=== PATIENT | male | born 1975 | race Caucasian/White ===

== ENCOUNTER 2018-08-06 19:16 | Emergency (ER) | payer SELFPAY ==
--- NOTE | 2018-08-06 20:05 | ED Physician Documentation ---
History of Present Illness - Stated complaint Stated Complaint: ABD VICKY N - Chief complaint Chief Complaint: Abd Pain - History obtained from History obtained from: Patient - Additonal information Additional information: 42-year-old male presents the emergency department for evaluation of lower abdominal pain over the past several days which has progressively worsened. The patient reports a crampy pain in the lower abdomen. The patient also has sharp upper abdominal pain which is from his hiatal hernia. The patient also reports feeling generally weak and chilled. No fevers, vomiting or diarrhea. No testicular pain. No triggering factors. No relieving factors. Symptoms are described as moderate Review of Systems Constitutional: reports: Chills, Fatigue. denies: Fever Eyes: denies: Discharge Ears: denies: Ear pain Nose: denies: Congestion Throat: denies: Sore throat Cardiac: denies: Chest pain / pressure Respiratory: denies: Dyspnea GI: reports: Abdominal Pain. denies: Vomiting, Diarrhea : denies: Dysuria, Hematuria Musculoskeletal: denies: Neck pain Neurologic: denies: Altered mental status PD PAST MEDICAL HISTORY - Past Medical History Past Medical History: Yes GI: GERD Other Past Medical History: Edema to LE's; Former Meth & Marijuana user; Former ETOH user - Past Surgical History Past Surgical History: No - Present Medications Home Medications: Ambulatory Orders Medication Instructions Recorded Confirmed Acamprosate Calcium 1 tab PO TID 08/06/18 08/06/18 Cyanocobalamin (Vitamin B-12) 1 tab PO DAILY 08/06/18 08/06/18 [Vitamin B-12 (500 mcg sublingual)] Furosemide [Lasix] 1 tab PO DAILY 08/06/18 08/06/18 Iron,Carbonyl [Iron Chews] 65 mg PO DAILY 08/06/18 08/06/18 Multivitamin [Multiple Vitamins] 1 tab PO DAILY 08/06/18 08/06/18 Ranitidine HCl [Acid Paper And Pulp Mill Worker] 1 tab PO BID 08/06/18 08/06/18 - Allergies Allergies/Adverse Reactions: Allergies Allergy/AdvReac Type Severity Reaction Status Date / Time No Known Drug Allergies Allergy Verified 08/06/18 19:40 - Social History Does the pt smoke?: No Smoking Status: Never smoker Does the pt drink ETOH?: No Does the pt have substance abuse?: Yes Substance Use and Type: Marijuana, Meth - Immunizations Immunizations are current?: Yes - POLST Patient has POLST: No PD ED PE NORMAL - General General: Alert and oriented X 3, No acute distress - HEENT HEENT: Atraumatic, PERRL, EOMI - Cardiac Cardiac: RRR, Strong equal pulses - Respiratory Respiratory: No respiratory distress, Clear bilaterally - Abdomen Abdomen: Soft, Non distended. No: Non tender (Tender palpation in the lower abdomen, no rebound or peritoneal signs) - Derm Derm: Normal color - Extremities Extremities: No deformity - Neuro Neuro: Alert and oriented X 3, Normal speech - Psych Psych: Normal mood Results - Vitals Vitals: Vital Signs - 24 hr 08/06/18 08/06/18 19:20 21:09 Temperature 36.9 C Heart Rate 96 78 Respiratory 18 14 Rate Blood Pressure 183/89 H 111/71 O2 Saturation 98 97 Oxygen O2 Source Room air - Labs Labs: Laboratory Tests 08/06/18 08/06/18 08/06/18 19:42 19:45 19:45 WBC 6.1 RBC 5.73 Hgb 13.0 L Hct 42.2 MCV 73.7 L MCH 22.8 L MCHC 30.9 L RDW 23.7 H Plt Count 216 MPV 8.8 Neut # (Auto) 4.4 Lymph # (Auto) 1.1 L [place] # (Auto) 0.5 Eos # (Auto) 0.1 Baso # (Auto) 0.0 Absolute Nucleated RBC 0.00 Nucleated RBC % 0.0 Manual Slide Review Indicated WBC Morphology NORMAL APPEARANCE Platelet Estimate NORMAL (130-450,000) Platelet Morphology NORMAL APPEARANCE RBC Morph Micro Appear 1+ STOMATOCYTES Sodium 138 Potassium 4.4 Chloride 102 Carbon Dioxide 28 Anion Gap 8.0 BUN 14 Creatinine 0.9 Estimated GFR (MDRD) 93 Glucose 100 Calcium 9.3 Total Bilirubin 0.7 AST 25 ALT 33 Alkaline Phosphatase 70 Total Protein 8.1 Albumin 4.5 Globulin 3.6 Albumin/Globulin Ratio 1.3 Lipase 22 Urine Color YELLOW Urine Clarity CLEAR Urine pH 6.5 Ur Specific [place] <=1.005 Urine Protein NEGATIVE Urine Glucose (UA) NEGATIVE Urine Ketones NEGATIVE Urine Occult Blood NEGATIVE Urine Nitrite NEGATIVE Urine Bilirubin NEGATIVE Urine Urobilinogen 0.2 (NORMAL) Ur Leukocyte Esterase NEGATIVE Ur Microscopic Review NOT INDICATED Urine Culture Comments NOT INDICATED - Rads (name of study) CT abd/pelvis Radiology: Final report received (1. No acute solid or hollow viscus organ abnormalities to account for the patient's presentation. No evidence of bowel obstruction or appendicitis 2. There is a moderate sized hiatal hernia.3. There is splenomegaly. ) PD MEDICAL DECISION MAKING - ED course ED course: On reevaluation the patient resting comfortably, the patient's workup does not reveal any significant abnormality that would necessitate admission to the hospital or acute surgical consultation. The patient is aware of the incidental finding seen on CT scan. The patient appears appropriate for discharge and ongoing outpatient management. I discussed warning signs and recommended returning to the emergency department immediately for any worsening or any concerns. - Sepsis Event Vital Signs: Vital Signs - 24 hr 08/06/18 08/06/18 19:20 21:09 Temperature 36.9 C Heart Rate 96 78 Respiratory 18 14 Rate Blood Pressure 183/89 H 111/71 O2 Saturation 98 97 Oxygen O2 Source Room air Departure - Departure Disposition: 01 Home, Self Care Clinical Impression: Hiatal hernia Abdominal pain Qualifiers: Abdominal location: unspecified location Qualified Code(s): R10.9 - Unspecified abdominal pain Anemia Qualifiers: Anemia type: unspecified type Qualified Code(s): D64.9 - Anemia, unspecified Condition: Good Instructions: Abdominal Pain Comments: Please follow-up with primary care for further evaluation of your symptoms. Please return to the emergency department immediately for worsening symptoms or any concerns
[2018-08-06 20:07] LABS: ALBUMIN 4.5 g/dL (3.2-5.5); ALBUMIN/GLOBULIN RATIO 1.3 (1.0-2.2); BILIRUBIN,TOTAL 0.7 mg/dL (0.2-1.0); CALCIUM 9.3 mg/dL (8.5-10.3); CREATININE 0.9 mg/dL (0.6-1.2); TOTAL PROTEIN 8.1 g/dL (6.7-8.2)
[2018-08-06 20:12] LABS: BILIRUBIN,URINE NEGATIVE (NEGATIVE); GLUCOSE, URINE (UA) NEGATIVE (NEGATIVE); KETONES,URINE (UA) NEGATIVE (NEGATIVE); LEUKOCYTE ESTERASE, URINE NEGATIVE (NEGATIVE); NITRITE,URINE NEGATIVE (NEGATIVE); OCCULT BLOOD,URINE NEGATIVE (NEGATIVE); PH,URINE 6.5 PH (5.0-7.5); PROTEIN,URINE NEGATIVE (NEGATIVE); UROBILINOGEN,URINE 0.2 (NORMAL) E.U./dL (NORMAL)
[2018-08-06] MEDS ORDERED: SODIUM CHLORIDE 0.9% 1,000 ML IV ONE (20:14)
[2018-08-06] MEDS ORDERED: ONDANSETRON 4 MG/2 ML VIAL IVP STA (20:14)
[2018-08-06] MEDS ORDERED: KETOROLAC 60 MG/2 ML VIAL IVP STA (20:14)
[2018-08-06 20:18] LABS: CLARITY,URINE CLEAR (CLEAR)
[2018-08-06 20:21] LABS: BASOPHILS % (AUTO) 0.6 %; EOSINOPHILS # (AUTO) 0.1 10^3/uL (0.0-0.7); EOSINOPHILS % (AUTO) 1.3 %; LYMPHOCYTES # (AUTO) 1.1 10^3/uL (1.5-3.5); MEAN CORPUSCULAR HEMOGLOBIN 22.8 pg (27.0-31.0); MEAN CORPUSCULAR HGB CONC 30.9 g/dL (32.0-36.0); MEAN CORPUSCULAR VOLUME 73.7 fL (80.0-94.0); MEAN PLATELET VOLUME 8.8 fL (7.4-11.4); MONOCYTES # (AUTO) 0.5 10^3/uL (0.0-1.0); MONOCYTES % (AUTO) 7.7 %; NEUTROPHILS # (AUTO) 4.4 10^3/uL (1.5-6.6); NEUTROPHILS % (AUTO) 72.4 %; PLT - PLATELET COUNT 216 10^3/uL (130-450); RED BLOOD COUNT 5.73 10^6/uL (4.70-6.10); RED CELL DISTRIBUTION WIDTH 23.7 % (12.0-15.0); WHITE BLOOD COUNT 6.1 x10^3/uL (4.8-10.8)
[2018-08-06] MEDS ORDERED: IOPAMIDOL-300 100 ML VIAL ONE (20:33)
[2018-08-06 20:56] LABS: PLATELET ESTIMATE, MANUAL NORMAL (130-450,000) (NORMAL); PLATELET MORPHOLOGY NORMAL APPEARANCE (NORMAL)
[2018-08-06] MEDS ORDERED: IOPAMIDOL-300 100 ML VIAL IVP ONE (21:15)
--- NOTE | 2018-08-06 21:31 | CT Report ---
Reason: RLQ pain Procedure Date: 08/06/2018 Accession Number: [id number] / [id number] Procedure: CT - Abdomen/Pelvis W/ CPT Code: FULL RESULT: EXAM: CT ABDOMEN AND PELVIS EXAM DATE: 08/06/2018 08:54 PM. CLINICAL HISTORY: RLQ pain. COMPARISONS: None. TECHNIQUE: Routine helical CT imaging was performed through the abdomen and pelvis. IV contrast: 100 ML ISOVUE 300. Enteric contrast: No. Reconstructions: Coronal and sagittal. In accordance with CT protocol optimization, one or more of the following dose reduction techniques were utilized for this exam: automated exposure control, adjustment of mA and/or KV based on patient size, or use of iterative reconstructive technique. FINDINGS: Lung Bases: Unremarkable. Liver: Normal. No masses. Gallbladder/Bile Ducts: Unremarkable. Spleen: There is splenomegaly. Pancreas: Normal. Adrenal Glands: Normal. Kidneys: Normal. No masses or hydronephrosis. Peritoneal Cavity/Bowel: There is a moderate sized hiatal hernia. No dilated or thick-walled bowel is seen. No intraperitoneal free air or free fluid. No enlarged mesenteric or retroperitoneal lymph nodes. The appendix is well visualized and normal. Pelvic Organs: Normal. The bladder and visualized pelvic organs are within normal limits. Vasculature: No aneurysms or other significant abnormality. Bones: No significant abnormality. Other: None. IMPRESSION: 1. No acute solid or hollow viscus organ abnormalities to account for the patient's presentation. No evidence of bowel obstruction or appendicitis. 2. There is a moderate sized hiatal hernia. 3. There is splenomegaly. RADIA
[2018-08-06 21:55] VITALS: BP 137/88
== END 2018-08-06 21:54 | disposition home or self-care (01) ==
LOC: ED 19:16
DX: K44.9 Diaphragmatic hernia without obstruction or gangrene (principal); R10.9 Unspecified abdominal pain; D64.9 Anemia, unspecified
CPT/HCPCS: 36415; 74177; 80053; 81003; 83690; 85025; 96361; 96374; 96375; 99284; Q9967; 81001; 87086

== ENCOUNTER 2020-10-02 20:13 | Emergency (ER) | payer OTHER ==
[2020-10-02 20:23] VITALS: BP 166/72
[2020-10-02] MEDS ORDERED: KETOROLAC 60 MG/2 ML VIAL IM STA (20:35)
--- NOTE | 2020-10-02 20:39 | ED Physician Documentation ---
History of Present Illness - Stated complaint Stated Complaint: RT SHOULDER PX - Chief complaint Chief Complaint: Ext Problem - Additonal information Additional information: 45-year-old male presents to the emergency department for evaluation of acute right shoulder pain. 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 He has had pain since then. He did take an ibuprofen with moderate relief of pain. He is right-handed. No history of previous injury to the shoulder. Review of Systems Constitutional: reports: Reviewed and negative Ears: reports: Reviewed and negative Nose: reports: Reviewed and negative Throat: reports: Reviewed and negative Cardiac: reports: Reviewed and negative Respiratory: reports: Wheezing (hx of asthma) GI: reports: Reviewed and negative Skin: reports: Reviewed and negative Musculoskeletal: reports: Joint pain (right shoulder), Joint swelling Neurologic: reports: Reviewed and negative PD PAST MEDICAL HISTORY - Past Medical History GI: GERD - Past Surgical History Past Surgical History: No General: Hiatal hernia repair - Present Medications Home Medications: Ambulatory Orders Medication Instructions Recorded Confirmed Acamprosate Calcium 1 tab PO TID 08/06/18 08/06/18 Cyanocobalamin (Vitamin B-12) 1 tab PO DAILY 08/06/18 08/06/18 [Vitamin B-12 (500 mcg sublingual)] Furosemide [Lasix] 1 tab PO DAILY 08/06/18 08/06/18 Iron,Carbonyl [Iron Chews] 65 mg PO DAILY 08/06/18 08/06/18 Multivitamin [Multiple Vitamins] 1 tab PO DAILY 08/06/18 08/06/18 raNITIdine HCl [Acid Toxicologist] 1 tab PO BID 08/06/18 08/06/18 Ibuprofen [Motrin] 600 mg PO Q6H PRN #30 tab 10/02/20 - Allergies Allergies/Adverse Reactions: Allergies Allergy/AdvReac Type Severity Reaction Status Date / Time No Known Drug Allergies Allergy Verified 10/02/20 20:23 - Social History Does the pt smoke?: No Smoking Status: Never smoker Does the pt drink ETOH?: No Does the pt have substance abuse?: Yes - Immunizations Immunizations are current?: Yes - POLST Patient has POLST: No PD ED PE EXPANDED - General General: Alert, Other (obese) - Neck Neck: Supple w/out meningeal sx. No: Limited ROM - Extremities Extremities: Right shoulder (No swelling error erythema. Full range of motion in all planes though painful. He has a negative drop arm test. Negative infraspinatus test. Tenderness with palpation over biceps tendon) Results - Vitals Vitals: Vital Signs - 24 hr 10/02/20 20:17 Temperature 36.7 C Heart Rate 96 Respiratory 18 Rate Blood Pressure 166/72 H O2 Saturation 94 Oxygen O2 Source Room air - Rads (name of study) Right shoulder Radiology: Final report received, EMP read indepedently (No acute process) PD MEDICAL DECISION MAKING - ED course Complexity details: reviewed results ED course: 45-year-old male presents to the emergency department with acute right shoulder pain that was sustained while at work when he was lifting a bucket of heavy leaves over his head. [place] a pop in the lateral and anterior shoulder. Reassuringly has nearly full range of motion despite pain. The drop arm and infraspinatus impingement tests were negative. My suspicion for rotator cuff is lower at this time. X-ray does not show any acute fracture or dislocation. I will recommend that this gentleman take ibuprofen with food 3 times a day for the next 4 to 5 days. I also recommend ice to the shoulder. His work restriction will include no lifting pushing or pulling heavier than 2 pounds until cleared by primary care provider or follow-up [facility] provider Departure - Departure Clinical Impression: Sprain of shoulder, right Qualifiers: Encounter type: initial encounter Shoulder sprain type: unspecified sprain Qualified Code(s): S43.401A - Unspecified sprain of right shoulder joint, initial encounter Condition: Stable Record reviewed to determine appropriate education?: Yes Instructions: ED Sprain Shoulder Prescriptions: Ibuprofen [Motrin] 600 mg PO Q6H PRN #30 tab PRN Reason: Pain Comments: Didier the x-ray of your shoulder does not show any broken bones or dislocations. The tests I did on your shoulder today do not look like you have a rotator cuff tear. I suspect however that you do have a sprain of the shoulder. I would like you to avoid lifting pushing or pulling anything greater than 2 pounds for the next week. I would like you to take ibuprofen with food for pain 2-3 times a day and I would also like you to ice the shoulder. It is important that you see your [facility] provider for follow-up within the next week or see a primary care doctor.
--- NOTE | 2020-10-02 21:11 | XRAY Report ---
PROCEDURE: Shoulder 3 View RT INDICATIONS: pain agitated lifting heavy leaves TECHNIQUE: 3 views of the shoulder were acquired. COMPARISON: None. FINDINGS: Bones: No fractures or dislocations. No suspicious bony lesions. Visualized ribs appear intact. Soft tissues: No suspicious soft tissue calcifications. IMPRESSION: No visualized acute fracture or dislocation. However, occult injury cannot be excluded. Recommend short interval imaging follow-up in 7-10 days as clinically indicated for additional evalua tion. Reviewed by: Zakia Vega MD on 10/02/2020 9:10 PM PST Approved by: Zakia Vega MD on 10/02/2020 9:10 PM [facility] Station ID: [id number]
== END 2020-10-02 21:02 | disposition home or self-care (01) ==
LOC: ED 20:13
DX: S43.401A Unspecified sprain of right shoulder joint, initial encounter (principal); X50.0XXA Overexertion from strenuous movement or load, initial encounter; Y93.H9 Activity, other involving exterior property and land maintenance, building and construction; Y99.0 Civilian activity done for income or pay
CPT/HCPCS: 1040M; 73030; 96372; 99283

== ENCOUNTER 2021-02-01 17:29 | Emergency (ER) | payer MEDICAID, OTHER ==
[2021-02-01] MEDS ORDERED: METOPROLOL TARTRATE 50 MG TABLET PO STA (17:42)
[2021-02-01] MEDS ORDERED: NITROGLYCERIN SL 0.4 MG TABLET SL STA (17:42)
[2021-02-01] MEDS ORDERED: ASPIRIN CHEW 81 MG TABLET PO STA (17:42)
[2021-02-01] MEDS ORDERED: METOPROLOL 5 MG/5 ML VIAL IVP STA (17:42)
--- NOTE | 2021-02-01 17:45 | ED Physician Documentation ---
PD HPI CHEST PAIN - Stated complaint Stated Complaint: CHEST PAIN, FACE TINGLING - History obtained from History obtained from: Patient - Additional information Additional information: Started at 4pm, he Developed nonradiating substernal chest pressure with shortness of breath while doing light housework. He feels tingling up the left side of the jaw and face. Dry mouth. He denies sweats or nausea. He has no history of heart problems. No family history of heart problems. He does have a history of anemia. Review of Systems Ten Systems: 10 systems reviewed and negative Constitutional: denies: Fever, Chills Cardiac: reports: Chest pain / pressure. denies: Palpitations Respiratory: reports: Dyspnea. denies: Cough GI: denies: Abdominal Pain, Nausea PD PAST MEDICAL HISTORY - Past Medical History GI: GERD - Past Surgical History Past Surgical History: No General: Hiatal hernia repair - Present Medications Home Medications: Ambulatory Orders Medication Instructions Recorded Confirmed Acamprosate Calcium 1 tab PO TID 08/06/18 08/06/18 Cyanocobalamin (Vitamin B-12) 1 tab PO DAILY 08/06/18 08/06/18 [Vitamin B-12 (500 mcg sublingual)] Furosemide [Lasix] 1 tab PO DAILY 08/06/18 08/06/18 Iron,Carbonyl [Iron Chews] 65 mg PO DAILY 08/06/18 08/06/18 Multivitamin [Multiple Vitamins] 1 tab PO DAILY 08/06/18 08/06/18 raNITIdine HCl [Acid Global Position System Technician] 1 tab PO BID 08/06/18 08/06/18 Ibuprofen [Motrin] 600 mg PO Q6H PRN #30 tab 10/02/20 - Allergies Allergies/Adverse Reactions: Allergies Allergy/AdvReac Type Severity Reaction Status Date / Time No Known Drug Allergies Allergy Verified 02/01/21 17:48 - Social History Does the pt smoke?: No Smoking Status: Never smoker Does the pt drink ETOH?: No Does the pt have substance abuse?: Yes - Immunizations Immunizations are current?: Yes - POLST Patient has POLST: No PD ED PE NORMAL - Vitals Vital signs reviewed: Yes - General General: Alert and oriented X 3, Other (Appears mildly ill) - HEENT HEENT: PERRL, EOMI - Neck Neck: Supple, no meningeal sign, No bony TTP - Cardiac Cardiac: Other (Slight tachycardia without murmur, regular) - Respiratory Respiratory: No respiratory distress, Clear bilaterally - Abdomen Abdomen: Soft, Non tender - Back Back: No CVA TTP, No spinal TTP - Derm Derm: Normal color, Warm and dry - Extremities Extremities: No edema, No calf tenderness / cord - Neuro Neuro: Alert and oriented X 3, Normal speech Results - Vitals Vitals: Vital Signs - 24 hr 02/01/21 02/01/21 02/01/21 17:43 17:53 17:59 Temperature 36.8 C Heart Rate 113 H 96 92 Respiratory 20 22 19 Rate Blood Pressure 181/92 H 181/92 H 146/66 H O2 Saturation 100 100 98 02/01/21 18:09 Temperature Heart Rate 108 H Respiratory 18 Rate Blood Pressure 143/80 H O2 Saturation 98 Oxygen O2 Source ra - EKG (time done) 1732 Rate: Rate (enter#) (104) Rhythm: Sinus tachycardia (w pvc), LAE [place]: Normal Intervals: Normal LA QRS: Normal Ischemia: ST depression (Significant anterior septal ST depression concerning for ischemia, this could be consistent with a posterior STEMI.) Compare to prior EKG: Old EKG unavailable Computer interpretation: Agree with computer - Labs Labs: Laboratory Tests 02/01/21 02/01/21 02/01/21 17:40 17:40 17:40 WBC 5.6 RBC 4.03 L Hgb 6.3 L* Hct 27.0 L MCV 67.0 L MCH 15.6 L MCHC 23.3 L RDW 21.4 H Plt Count 182 Neut # (Auto) 4.2 Lymph # (Auto) 1.1 L [place] # (Auto) 0.3 Eos # (Auto) 0.1 Baso # (Auto) 0.0 Absolute Nucleated RBC 0.00 Nucleated RBC % 0.0 Manual Slide Review Indicated WBC Morphology NORMAL APPEARANCE Platelet Estimate NORMAL (130-450,000) Platelet Morphology NORMAL APPEARANCE RBC Morph Micro Appear 1+ TEARDROP CELLS Sodium 140 Potassium 4.2 Chloride 98 L Carbon Dioxide 26 Anion Gap 16.0 H BUN 16 Creatinine 0.9 Estimated GFR (MDRD) 92 Glucose 105 H Calcium 9.6 Total Bilirubin 1.2 H AST 20 ALT 19 Alkaline Phosphatase 50 Troponin I High Sens 18.4 Total Protein 7.6 Albumin 4.4 Globulin 3.2 Albumin/Globulin Ratio 1.4 Lipase 20 L - Rads (name of study) 1v chest Radiology: EMP read contemporaneously (Cardiac enlargement and diffuse interstitial thickening suggesting CHF with a small left pleural effusion) PD MEDICAL DECISION MAKING - ED course ED course: 45-year-old gentleman with a very acute typical chest pain, EKG is quite concerning for a posterior STEMI. No prior EKGs available for comparison. He was accepted by Dr. Morris to [facility] ED at approximately 5:45 PM and the EKG was faxed over there. He was administered aspirin, Nitropaste, sublingual nitro, IV and oral metoprolol. He also had a heparin bolus after reviewing the chest x-ray which did not show a significantly widened mediastinum to my eye. His hemoglobin is 6.3. He does have chronic anemia. [facility] felt it would be quicker to give him one of their units in route as opposed to doing a hospital unit of blood. - Critical Care Time(min): 38 Time Includes: Direct patient care, Review records, Reassess patient, Document care, Coordinate care, Medical consult, Family consult for tx dec ( by phone and subsequently in person) Data interpretation: Labs Procedures included in critical care time: Peripheral IV Procedures excluded from critical care time: EKG Departure - Departure Disposition: 02 Transfer Acute Care Hosp Clinical Impression: Acute ST elevation myocardial infarction (STEMI) of posterior wall Anemia Qualifiers: Anemia type: unspecified type Qualified Code(s): D64.9 - Anemia, unspecified Condition: Critical Discharge Date/Time: 02/01/21 18:10
[2021-02-01] MEDS ORDERED: NITROGLYCERIN 2% PASTE TOP STA (17:48)
[2021-02-01 17:57] LABS: BASOPHILS % (AUTO) 0.5 %; EOSINOPHILS # (AUTO) 0.1 10^3/uL (0.0-0.7); EOSINOPHILS % (AUTO) 1.1 %; LYMPHOCYTES # (AUTO) 1.1 10^3/uL (1.5-3.5); LYMPHOCYTES % (AUTO) 18.6 %; MEAN CORPUSCULAR HEMOGLOBIN 15.6 pg (27.0-31.0); MEAN CORPUSCULAR HGB CONC 23.3 g/dL (32.0-36.0); MONOCYTES # (AUTO) 0.3 10^3/uL (0.0-1.0); NEUTROPHILS # (AUTO) 4.2 10^3/uL (1.5-6.6); NEUTROPHILS % (AUTO) 73.6 %; PLT - PLATELET COUNT 182 10^3/uL (130-450); RED BLOOD COUNT 4.03 10^6/uL (4.70-6.10); RED CELL DISTRIBUTION WIDTH 21.4 % (12.0-15.0); WHITE BLOOD COUNT 5.6 x10^3/uL (4.8-10.8)
[2021-02-01] MEDS ORDERED: HEPARIN 5,000 UNIT/ML VIAL IVP STA (17:58)
[2021-02-01 18:02] LABS: HGB - HEMOGLOBIN 6.3 g/dL (14.0-18.0)
[2021-02-01] MEDS ORDERED: LORazepam 2 MG/ML VIAL IVP STA (18:02)
[2021-02-01 18:10] VITALS: BP 143/80
[2021-02-01 18:10] LABS: ALBUMIN 4.4 g/dL (3.2-5.5); ALBUMIN/GLOBULIN RATIO 1.4 (1.0-2.2); BILIRUBIN,TOTAL 1.2 mg/dL (0.2-1.0); CALCIUM 9.6 mg/dL (8.5-10.3); CREATININE 0.9 mg/dL (0.6-1.2); POTASSIUM 4.2 mmol/L (3.5-5.0); TOTAL PROTEIN 7.6 g/dL (6.7-8.2)
--- NOTE | 2021-02-01 18:27 | XRAY Report ---
PROCEDURE: Chest 1 View X-Ray INDICATIONS: Chest Pain TECHNIQUE: One view of the chest was acquired. COMPARISON: None available FINDINGS: Surgical changes and devices: None. Lungs and pleura: No pleural effusions or pneumothorax. Lungs demonstrate diffuse interstitial thick ening bilaterally and elevated lateral left hemidiaphragm. Probable small left pleural effusion.. Mediastinum: Mediastinal contours appear normal. Central vasculature is mildly indistinct. Heart siz e is moderately enlarged. Bones and chest wall: No suspicious bony lesions. Overlying soft tissues appear unremarkable. IMPRESSION: 1. Cardiac enlargement and diffuse interstitial thickening suggests CHF. 2. Small left pleural effusion. Reviewed by: Stefany Corley MD on 02/01/2021 6:26 PM PST Approved by: Stefany Corley MD on 02/01/2021 6:26 PM PST Station ID: [id number]
[2021-02-01 18:37] LABS: SLIDE REVIEW? Indicated
[2021-02-01 18:48] LABS: PLATELET ESTIMATE, MANUAL NORMAL (130-450,000) (NORMAL); PLATELET MORPHOLOGY NORMAL APPEARANCE (NORMAL)
[2021-02-01 18:49] LABS: WBC MORPHOLOGY (MULTIPLE) NORMAL APPEARANCE (NORMAL)
[2021-02-01 19:07] LABS: B. PARAPERTUSSIS- RESP PCR PAN NOT DETECTED; B. PERTUSSIS- RESP PCR PANEL NOT DETECTED; C. PNEUMONIAE- RESP PCR PANEL NOT DETECTED; CORONAVIRUS 229E-RESP PCR NOT DETECTED; CORONAVIRUS HKU1-RESP PCR NOT DETECTED; CORONAVIRUS NL63-RESP PCR NOT DETECTED; CORONAVIRUS OC43-RESP PCR NOT DETECTED; HUMAN METAPNEUMOVIRUS NOT DETECTED; INFLUENZA A- RESP PCR PANEL NOT DETECTED; INFLUENZA B - RESP PCR PANEL NOT DETECTED; M. PNEUMONIAE- RESP PCR PANEL NOT DETECTED; PARAINFLUENZA VIRUS 1 NOT DETECTED; PARAINFLUENZA VIRUS 2 NOT DETECTED; PARAINFLUENZA VIRUS 3 NOT DETECTED; PARAINFLUENZA VIRUS 4 NOT DETECTED; RHINOVIRUS/ENTEROVIRUS NOT DETECTED; RSV- RESP PCR PANEL NOT DETECTED; SARS-CoV-2 -RESP PCR PANEL NOT DETECTED
== END 2021-02-01 18:10 | disposition short-term general hospital (02) ==
LOC: ED 17:29
DX: I21.29 ST elevation (STEMI) myocardial infarction involving other sites (principal); R00.0 Tachycardia, unspecified; J90 Pleural effusion, not elsewhere classified; D64.9 Anemia, unspecified; Z20.822 Contact with and (suspected) exposure to COVID-19
CPT/HCPCS: 0202U; 36415; 71045; 80053; 83690; 84484; 85025; 93005; 96374; 96375; 99285; 99291; A9270; J2060

== ENCOUNTER 2021-11-02 08:29 | Emergency (ER) | payer OTHER ==
[2021-11-02 08:42] VITALS: BP 153/104
--- NOTE | 2021-11-02 09:04 | ED Physician Documentation ---
PD HPI OPHTHO - Stated complaint Stated Complaint: RT EYE PX - Chief complaint Chief Complaint: Heent - History obtained from History obtained from: Patient - Additional information Additional information: Comes emergency department chief complaint of redness in right eye. He states that it started yesterday as a red spot, but has spread further after last night. He states there is been some itching, but no discharge. He has noticed a couple of tiny blood clots under the surface of his eye. He denies any visual changes. Patient states he was on his way to work this morning and his told him he should stop and get his eyes checked. Patient denies any vomiting or coughing recently. No blunt trauma. He is not on any anticoagulants. No other complaints at this time. Review of Systems Ten Systems: 10 systems reviewed and negative Constitutional: reports: Reviewed and negative Eyes: reports: Other (Redness, itching) Ears: reports: Reviewed and negative Nose: reports: Reviewed and negative Throat: reports: Reviewed and negative Cardiac: reports: Reviewed and negative Respiratory: reports: Reviewed and negative GI: reports: Reviewed and negative : reports: Reviewed and negative Skin: reports: Reviewed and negative Musculoskeletal: reports: Reviewed and negative Neurologic: reports: Reviewed and negative Psychiatric: reports: Reviewed and negative Endocrine: reports: Reviewed and negative Immunocompromised: reports: Reviewed and negative PD PAST MEDICAL HISTORY - Past Medical History GI: GERD - Past Surgical History Past Surgical History: No General: Hiatal hernia repair - Present Medications Home Medications: Ambulatory Orders Medication Instructions Recorded Confirmed Acamprosate Calcium 1 tab PO TID 08/06/18 08/06/18 Cyanocobalamin (Vitamin B-12) 1 tab PO DAILY 08/06/18 08/06/18 [Vitamin B-12 (500 mcg sublingual)] Furosemide [Lasix] 1 tab PO DAILY 08/06/18 08/06/18 Iron,Carbonyl [Iron Chews] 65 mg PO DAILY 08/06/18 08/06/18 Multivitamin [Multiple Vitamins] 1 tab PO DAILY 08/06/18 08/06/18 raNITIdine HCl [Acid Health Researcher] 1 tab PO BID 08/06/18 08/06/18 Ibuprofen [Motrin] 600 mg PO Q6H PRN #30 tab 10/02/20 - Allergies Allergies/Adverse Reactions: Allergies Allergy/AdvReac Type Severity Reaction Status Date / Time No Known Drug Allergies Allergy Verified 11/02/21 08:42 - Social History Does the pt smoke?: No Smoking Status: Never smoker Does the pt drink ETOH?: No Does the pt have substance abuse?: Yes - Immunizations Immunizations are current?: Yes - POLST Patient has POLST: No PD ED PE NORMAL - Vitals Vital signs reviewed: Yes - General General: Alert and oriented X 3, No acute distress - HEENT HEENT: Atraumatic, PERRL, EOMI, Moist mucous membranes, Other (Subconjunctival hemorrhage medial right eye. No periorbital trauma.) - Neck Neck: Supple, no meningeal sign - Respiratory Respiratory: No respiratory distress - Derm Derm: Warm and dry - Extremities Extremities: No deformity - Neuro Neuro: Alert and oriented X 3 - Psych Psych: Normal mood, Normal affect Results - Vitals Vitals: Vital Signs - 24 hr 11/02/21 08:36 Temperature 35.5 C L Heart Rate 91 Respiratory 16 Rate Blood Pressure 153/104 H O2 Saturation 94 Oxygen O2 Source Room air PD MEDICAL DECISION MAKING - ED course Complexity details: considered differential, d/w patient ED course: I discussed with the patient that his symptoms are consistent with subconjunctival hemorrhage. His visual acuity looks fairly good and I do not find any evidence of conjunctivitis. We have discussed symptomatic management of the subconjunctival hemorrhage and the usual indications for return. Departure - Departure Disposition: 01 Home, Self Care Clinical Impression: Subconjunctival hemorrhage Qualifiers: Laterality: right Qualified Code(s): H11.31 - Conjunctival hemorrhage, right eye Condition: Stable Instructions: ED Eye Injury Subconj Hemorrhage Comments: There is no evidence of foreign material in your eye or a scratch. You have broken blood vessel under the surface of the "white" of your eye. This can happen, as we discussed, from high-pressure incidence like vomiting or coughing fits, or sometimes it can happen from blunt trauma. It is very possible that in the night, you happen to rub your eye and this is what likely caused the vessel to break. This can happen on occasion. The bleeding does not affect the seeing part of your eye, and the rest of the "white" of your eye actually looks quite good. It does not appear to be infected.The blood spot will go away over the next couple of weeks. You develop discharge other than tears and the rest of your eye begins to become itchy and appear inflamed, you should have it looked at again.
== END 2021-11-02 09:32 | disposition home or self-care (01) ==
LOC: ED 08:29
DX: H11.31 Conjunctival hemorrhage, right eye (principal)
CPT/HCPCS: 99281; 99282

== ENCOUNTER 2023-06-21 13:23 | Emergency (ER) | payer OTHER, BC ==
[2023-06-21 13:32] VITALS: BP 160/90
[2023-06-21] MEDS ORDERED: BUFFERED LIDOCAINE 10 ML SYRINGE SUBQ STA (13:38)
[2023-06-21] MEDS ORDERED: IBUPROFEN 800 MG TABLET PO STA (13:38)
[2023-06-21] MEDS ORDERED: oxyCODONE 5 MG TABLET PO STA (13:38)
--- NOTE | 2023-06-21 13:40 | ED Physician Documentation ---
PD HPI UPPER EXT INJURY - Stated complaint Stated Complaint: RT FINGER LAC - Chief complaint Chief Complaint: Laceration - History obtained from History obtained from: Patient - Additonal information Additional information: 47-year-old gentleman who is up-to-date on tetanus was at work today and a piece of steel dropped on his second and third fingers of the right hand with skin tears and lacerations and significant pain. PD PAST MEDICAL HISTORY - Past Medical History GI: GERD - Past Surgical History Past Surgical History: No General: Hiatal hernia repair - Present Medications Home Medications: Ambulatory Orders Medication Instructions Recorded Confirmed Acamprosate Calcium 1 tab PO TID 08/06/18 08/06/18 Cyanocobalamin (Vitamin B-12) 1 tab PO DAILY 08/06/18 08/06/18 [Vitamin B-12 (500 mcg sublingual)] Furosemide [Lasix] 1 tab PO DAILY 08/06/18 08/06/18 Iron,Carbonyl [Iron Chews] 65 mg PO DAILY 08/06/18 08/06/18 Multivitamin [Multiple Vitamins] 1 tab PO DAILY 08/06/18 08/06/18 raNITIdine HCl [Acid Speeder Machine Operator] 1 tab PO BID 08/06/18 08/06/18 Ibuprofen [Motrin] 600 mg PO Q6H PRN #30 tab 10/02/20 Oxycodone HCl/Acetaminophen 1 - 2 each PO Q6H PRN #14 tablet 06/21/23 [Percocet 5-325 mg Tablet] - Allergies Allergies/Adverse Reactions: Allergies Allergy/AdvReac Type Severity Reaction Status Date / Time No Known Drug Allergies Allergy Verified 06/21/23 13:27 - Social History Does the pt smoke?: No Smoking Status: Never smoker Does the pt drink ETOH?: No Does the pt have substance abuse?: Yes - Immunizations Immunizations are current?: Yes - POLST Patient has POLST: No PD ED PE NORMAL - Vitals Vital signs reviewed: Yes - General General: Alert and oriented X 3, No acute distress - Extremities Extremities: Other (There is a 2 cm laceration on the medial side of the middle finger without flexor or extensor tendon dysfunction and normal neurovascular function of the tip. There are more abrasions and tears with swelling and tenderness of the right second finger.) - Neuro Neuro: Alert and oriented X 3, Normal speech - Psych Psych: Normal mood, Normal affect Results - Vitals Vitals: Vital Signs - 24 hr 06/21/23 13:27 Temperature 37.4 C Heart Rate 86 Respiratory 16 Rate Blood Pressure 160/90 H O2 Saturation 97 Oxygen O2 Source Room air - Rads (name of study) Three-view x-ray of his right hand was negative for fracture. Relevant Findings:: Final report received, EMP independent interpretation of test Procedures - Laceration (location) Right middle finger Length in cm: 2 Wound type: Linear, Into subcut fat Neurovascular status: Sensory intact, Motor intact Tendon involvement: Tendon intact Anesthesia: Lidocaine 1%, With bicarb (Digital block with buffered lidocaine) Wound preparation: Hibiclens, Irrigated copiously NS Skin layer closure: Nylon, Interrupted, Size #-0 - enter number (4-0), Sutures - enter # (3) Other: Patient tolerated well, No complications, Neurovascular intact, Tetanus UTD Right ring finger Length in cm: 2 Wound type: Superficial (Very shallow breaks in the skin and flaps) Neurovascular status: Sensory intact, Motor intact, Vascular intact Anesthesia: Lidocaine 1%, With bicarb (Digital block with buffered lidocaine) Wound preparation: Hibiclens, Irrigated copiously NS Skin layer closure: Dermabond Other: Patient tolerated well, No complications, Neurovascular intact, Tetanus UTD PD Medical Decision Making - ED course ED course: L&I paperwork [id number] completed and submitted Departure - Departure Disposition: 01 Home, Self Care Condition: Good Record reviewed to determine appropriate education?: Yes Instructions: ED Laceration All Prescriptions: Oxycodone HCl/Acetaminophen [Percocet 5-325 mg Tablet] 1 - 2 each PO Q6H PRN #14 tablet PRN Reason: pain Comments: I sent your prescription electronically to [facility] in [place]. For the index finger he can wash with soap and water and then keep it covered with a loose wrap. For the middle finger: Come back for any signs of infection which would include: Redness, swelling, drainage, increased pain, or fevers. You can wash it soap and water. Keep it covered and moist with bacitracin ointment which is available over the counter; avoid neosporin. Follow-up with your physician in 14 days for suture removal. I am prescribing a short course of narcotic pain medication for you. These are potentially dangerous and addictive medications that should be used carefully. These medications may constipate you. Take an felh-bzk-lyqeotl stool softener (docusate) twice daily with plenty of water while taking these medications. If you go 24 hours without a bowel movement, take jnyj-ovu-gmiivds miralax, per package instructions. Do not drink or drive while taking these medications. If you received narcotic or sedating medications while in the emergency department, do not drive for 24 hours. Store this medication in a safe, secure place and out of reach of children. It is a violation of federal law to give or sell this medication to another person or to use in a manner other than prescribed. The ED will not refill narcotic prescriptions, including prescriptions lost or stolen. To dispose of unwanted medications: 1. [facility] provides a drop box for medication in pill form only (no liquids) 8:00 am to 4:30 p.m. Tuesday-Tuesday in the lobby of the [facility], [address] [place] [address]. Empty pills into ziplock bag before disposal. Call [phone] for information. 2.[employer] is a free service available to all [facility] residents. Go to [email or web address] Note that many narcotic pain relievers also contain Tylenol/acetaminophen. Please ensure that your total dose of acetaminophen from all sources does not exceed 3 g (3000 mg) per day. Forms: PCP List, Activity restrictions
--- NOTE | 2023-06-21 14:19 | XRAY Report ---
PROCEDURE: Hand 3 View RT INDICATIONS: fingers inj TECHNIQUE: 3 views of the hand(s) acquired. COMPARISON: None. FINDINGS: Bones: No fractures or dislocations. No suspicious bony lesions. Soft tissues: No suspicious soft tissue calcifications or masses. IMPRESSION: No visualized acute fracture or dislocation. However, occult injury cannot be excluded. Recommend zhao rt interval imaging follow-up in 7-10 days as clinically indicated for additional evaluation. Reviewed by: Zakia Vega MD on 06/21/2023 2:17 PM PDT Approved by: Zakia Vega MD on 06/21/2023 2:17 PM PDT Station ID: [id number]
== END 2023-06-21 14:30 | disposition home or self-care (01) ==
LOC: ED 13:23
DX: S61.212A Laceration without foreign body of right middle finger without damage to nail, initial encounter (principal); S61.214A Laceration without foreign body of right ring finger without damage to nail, initial encounter; W20.8XXA Other cause of strike by thrown, projected or falling object, initial encounter; Y99.0 Civilian activity done for income or pay; Z79.899 Other long term (current) drug therapy
CPT/HCPCS: 1040M; 12002; 73130; 99283; A9270

== ENCOUNTER 2023-07-05 13:38 | Emergency (ER) | payer BC, OTHER ==
--- NOTE | 2023-07-05 14:38 | ED Physician Documentation ---
History of Present Illness - Stated complaint Stated Complaint: RT FINGER SWOLLEN - Chief complaint Chief Complaint: Laceration - History obtained from History obtained from: Patient - History of Present Illness Timing: How many weeks ago (2) Pain level max: 2 Pain level now: 2 - Additonal information Additional information: 47-year-old male presents to the emergency department with 2 complaints, the first is he is requesting suture removal from the right third digit, sutures were placed about 2 weeks ago. No complications. No redness, swelling or drainage. He is complaining of swelling and pain to the tip of the index finger on the right hand. No drainage. He states the original injury was a crush injury. No numbness or tingling. Worse with palpation. No drainage. No fevers. No chills. Review of Systems Constitutional: denies: Fever, Chills GI: denies: Vomiting PD PAST MEDICAL HISTORY - Past Medical History Past Medical History: Yes GI: GERD - Past Surgical History Past Surgical History: No General: Hiatal hernia repair - Present Medications Home Medications: Ambulatory Orders Medication Instructions Recorded Confirmed Acamprosate Calcium 1 tab PO TID 08/06/18 08/06/18 Cyanocobalamin (Vitamin B-12) 1 tab PO DAILY 08/06/18 08/06/18 [Vitamin B-12 (500 mcg sublingual)] Furosemide [Lasix] 1 tab PO DAILY 08/06/18 08/06/18 Iron,Carbonyl [Iron Chews] 65 mg PO DAILY 08/06/18 08/06/18 Multivitamin [Multiple Vitamins] 1 tab PO DAILY 08/06/18 08/06/18 raNITIdine HCl [Acid Mohs Surgeon] 1 tab PO BID 08/06/18 08/06/18 Ibuprofen [Motrin] 600 mg PO Q6H PRN #30 tab 10/02/20 Oxycodone HCl/Acetaminophen 1 - 2 each PO Q6H PRN #14 tablet 06/21/23 [Percocet 5-325 mg Tablet] cephALEXin [Keflex] 500 mg PO Q6H #28 cap 07/05/23 - Allergies Allergies/Adverse Reactions: Allergies Allergy/AdvReac Type Severity Reaction Status Date / Time No Known Drug Allergies Allergy Verified 07/05/23 13:40 - Social History Does the pt smoke?: No Smoking Status: Never smoker Does the pt drink ETOH?: No Does the pt have substance abuse?: Yes - Immunizations Immunizations are current?: Yes Immunizations: TDAP current <10years - POLST Patient has POLST: No PD ED PE NORMAL - Vitals Vital signs reviewed: Yes - General General: Alert and oriented X 3, No acute distress - HEENT HEENT: Moist mucous membranes - Derm Derm: Warm and dry - Extremities Extremities: Other - Neuro Neuro: Alert and oriented X 3 - Psych Psych: Normal mood, Normal affect - Free text exam Free text exam: R hand - Well-healed laceration to the right third digit, [address] No signs of infection. Neurovascular intact. The right index finger has some tenderness over the distal aspect. No evidence of deep space infection in the hand. No pain with flexion or extension of the finger. No palmar tenderness. Mild erythema. Results - Vitals Vitals: Vital Signs - 24 hr 07/05/23 07/05/23 13:40 14:43 Temperature 36.5 C Heart Rate 90 89 Respiratory 16 16 Rate Blood Pressure 160/90 H 158/94 H O2 Saturation 99 98 Oxygen O2 Source Room air Procedures - Suture/staple Removal (location) - Minor R 3rd digit Suture/staple removal: # sutures (3), No complications PD Medical Decision Making - ED course Complexity details: considered differential, d/w patient ED course: Sutures removed. tolerated well. no complications. Also has small amount of cellulitis to the R index finger. no felon or deep space infection. No drainage. no abscess. will place on antibiotics and close PCP follow up. Patient counseled regarding signs and symptoms for which I believe and urgent re-evaluation would be necessary. Patient with good understanding of and agreement to plan and is comfortable going home at this time This document was made in part using voice recognition software. While efforts are made to proofread this document, sound alike and grammatical errors may occur. Departure - Departure Disposition: 01 Home, Self Care Clinical Impression: Visit for suture removal Cellulitis Qualifiers: Site of cellulitis: extremity Site of cellulitis of extremity: finger Laterality: right Qualified Code(s): L03.011 - Cellulitis of right finger Condition: Good Instructions: ED Infec Skin Cellulitis, ED Wound Check Sutr Remove No Infec Follow-Up: your,doctor in 1 week [Other] Prescriptions: cephALEXin [Keflex] 500 mg PO Q6H #28 cap Comments: Your sutures were removed today. Please follow-up with your doctor for further care. Please take all antibiotics until gone. It is important that you have your finger rechecked in about 1 week to ensure there is no further signs of infection. You can follow-up either with your primary care provider or the walk-in clinic. Forms: PCP List Discharge Date/Time: 07/05/23 14:47
[2023-07-05 14:50] VITALS: BP 158/94; O2SAT 98
== END 2023-07-05 14:47 | disposition home or self-care (01) ==
LOC: ED 13:38
DX: L03.011 Cellulitis of right finger (principal); Z48.02 Encounter for removal of sutures; Z79.899 Other long term (current) drug therapy
CPT/HCPCS: 99282

== ENCOUNTER 2023-09-05 04:17 | Emergency (ER) | payer BC, OTHER ==
--- OUTSIDE RECORDS SUMMARY | 2023-09-05 04:29 | EXTERNAL MEDICAL SUMMARY RPT | Continuity of Care Document ---
Author Name Unknown Address [address] [place] [address] Phone Organization [employer] Address [address] [place] [address] Phone Care Team Providers Care Senior Database Engineer Name Role Phone Unavailable Unavailable Unavailable Evan Benjamin, Neymar Unavailable Unavailable Giovanni Thapa, Deshaun Unavailable Unavailable Allergies and Intolerances date description facility reaction severity 2023-07-13 12:57:47 allergy to substance (finding) All propensity to adverse reactions (no severity) 2023-07-20 13:53:25 allergy to substance (finding) All propensity to adverse reactions (no severity) Medications date description facility 2023-07-13 00:00 sulfamethoxazole-trimethoprim A 2023-07-13 00:00 sulfamethoxazole-trimethoprim A 2023-07-20 00:00 sulfamethoxazole-trimethoprim A 2023-07-13 00:00 sulfamethoxazole-trimethoprim A 2023-07-13 00:00 sulfamethoxazole-trimethoprim A 2023-07-20 00:00 sulfamethoxazole-trimethoprim A 2023-07-13 00:00 sulfamethoxazole-trimethoprim A 2023-07-13 00:00 sulfamethoxazole-trimethoprim A 2023-07-20 00:00 sulfamethoxazole-trimethoprim A 2023-07-13 00:00 sulfamethoxazole-trimethoprim A 2023-07-13 00:00 sulfamethoxazole-trimethoprim A 2023-07-20 00:00 sulfamethoxazole-trimethoprim A Problems date description [facility] 2023-07-13 00:00 Paronychia of finger of right h and All 2023-07-13 00:00 Paronychia of finger of right h and All 2023-07-13 00:00 Cellulitis of right finger All 2023-07-13 00:00 Cellulitis of right finger All Procedures date description facility 2023-07-13 00:00 Visit Code Hold All 2023-07-13 00:00 Visit Code Hold All 2023-07-20 00:00 Visit Code Hold All Social History date description facility 2023-07-13 00:00 Unknown if ever smoked All 2023-07-14 00:00 Unknown if ever smoked All 2023-07-20 00:00 Unknown if ever smoked All 2023-07-21 00:00 Unknown if ever smoked All Vital Signs date measurement value units 2023-07-13 00:00 BMI 42.86 kg/m2 2023-07-13 00:00 BP_diastolic 86 mmHg 2023-07-13 00:00 BP_systolic 140 mmHg 2023-07-13 00:00 heart_rate 89 /min 2023-07-13 00:00 height_metric 193.04 cm 2023-07-13 00:00 height_standard 76 in 2023-07-13 00:00 respiration_rate 22 /min 2023-07-13 00:00 temperature_metric 36.94 C 2023-07-13 00:00 temperature_standard 98.5 F 2023-07-13 00:00 weight_metric 159.12 kg 2023-07-13 00:00 weight_standard 350.8 lb 2023-07-20 00:00 BMI 42.68 kg/m2 2023-07-20 00:00 BP_diastolic 92 mmHg 2023-07-20 00:00 BP_systolic 160 mmHg 2023-07-20 00:00 heart_rate 80 /min 2023-07-20 00:00 height_metric 193.04 cm 2023-07-20 00:00 height_standard 76 in 2023-07-20 00:00 respiration_rate 16 /min 2023-07-20 00:00 temperature_metric 37.39 C 2023-07-20 00:00 temperature_standard 99.3 F 2023-07-20 00:00 weight_metric 158.49 kg 2023-07-20 00:00 weight_standard 349.4 lb
[2023-09-05] MEDS ORDERED: DEXAMETHASONE 10 MG/ML VIAL IV STA (05:20)
[2023-09-05] MEDS ORDERED: DEXAMETHASONE 10 MG/ML VIAL IM STA (05:30)
[2023-09-05] MEDS ORDERED: HYDROcod/ACETAM 5/325 MG TABLET PO STA (05:31)
[2023-09-05] MEDS ORDERED: AMOXICILLIN 250 MG CAPSULE PO STA (05:31)
[2023-09-05] MEDS ORDERED: ONDANSETRON ODT 4 MG TABLET TL STA (05:31)
[2023-09-05 05:50] VITALS: BP 129/83; O2SAT 96
--- NOTE | 2023-09-05 05:58 | ED Physician Documentation ---
History of Present Illness - Stated complaint Stated Complaint: LT FACE SWOLLEN - Chief complaint Chief Complaint: Allergic Rx - History obtained from History obtained from: Patient, Family - Additonal information Additional information: The patient comes to the emergency department chief complaint of left facial swelling and soreness that started yesterday. The patient states he has a history of quite a few bad teeth but does not feel like any particular tooth has been flaring up on him lately. No dental trauma. The patient denies any history of angioedema and is not on any blood pressure medications or any other meds for that matter. He states he did have a chill yesterday but no measured fever. No swelling of his tongue or throat. He states it seems to start in his upper lip lip on the left and go through his cheek and underneath his eye. The whole area feels swollen and a little sore to him. No difficulty breathing. No trismus. No other complaints at this time. The patient is allergic to bees only and has not been stung recently. PD PAST MEDICAL HISTORY - Past Medical History GI: GERD - Past Surgical History Past Surgical History: No General: Hiatal hernia repair - Present Medications Home Medications: Ambulatory Orders Medication Instructions Recorded Confirmed Amoxicillin 500 mg PO TID 7 Days #21 cap 09/05/23 HYDROcod/ACETAM 5/325 [Haviland 5/325] 1 - 2 tablet PO Q6H PRN #14 tablet 09/05/23 Ondansetron Odt [Zofran] 4 mg TL Q6H PRN #10 tablet 09/05/23 - Allergies Allergies/Adverse Reactions: Allergies Allergy/AdvReac Type Severity Reaction Status Date / Time bee venom protein (honey bee) Allergy Anaphylaxis Verified 09/05/23 04:48 - Social History Does the pt smoke?: No Smoking Status: Never smoker Does the pt drink ETOH?: No Does the pt have substance abuse?: Yes - Immunizations Immunizations are current?: Yes Immunizations: TDAP current <10years - POLST Patient has POLST: No PD ED PE NORMAL - Vitals Vital signs reviewed: Yes - General General: Alert and oriented X 3, No acute distress, Well developed/nourished - HEENT HEENT: Atraumatic, PERRL, EOMI, Moist mucous membranes, Other (Poor dentition; Mild tenderness over left maxillary gingiva anteriorly. Minimal edema of left upper and lower lips with tenderness but no appreciable edema spreading up to the patient's left lower eyelid. No drainage or fluctuance. No mass.) - Cardiac Cardiac: RRR, No murmur - Respiratory Respiratory: Clear bilaterally - Abdomen Abdomen: Normal bowel sounds, Soft, Non tender, Non distended - Derm Derm: Warm and dry - Extremities Extremities: No deformity - Neuro Neuro: Alert and oriented X 3 - Psych Psych: Normal mood, Normal affect Results - Vitals Vitals: Vital Signs - 24 hr 09/05/23 09/05/23 04:43 05:45 Temperature 36.1 C L Heart Rate 99 90 Respiratory 22 16 Rate Blood Pressure 189/91 H 129/83 H O2 Saturation 95 96 Oxygen O2 Source Room air PD Medical Decision Making - ED course Complexity details: reviewed results, re-evaluated patient, considered differential, d/w patient ED course: The patient was started on amoxicillin in the emergency department. He was also given doses of Zofran and hydrocodone as he was having pain and nausea. A dose of Decadron was given as well. The patient was found to be feeling better after the above medications. I [facility] [place]. Discussed with patient the need for definitive follow-up with a dentist or oral surgeon. Departure - Departure Disposition: 01 Home, Self Care Clinical Impression: Dental infection Condition: Stable Instructions: ED Abscess Dental Follow-Up: OSIEL LANDRY [Physician No Access] - Osiel Landry DDS [Provider Admit Priv/Credential] - Prescriptions: Amoxicillin 500 mg PO TID 7 Days #21 cap HYDROcod/ACETAM 5/325 [Haviland 5/325] 1 - 2 tablet PO Q6H PRN #14 tablet PRN Reason: Pain Ondansetron Odt [Zofran] 4 mg TL Q6H PRN #10 tablet PRN Reason: Nausea / Vomiting Comments: The prescriptions for your medications have been electronically transmitted to [facility] in [place]. Please pick those up today so you can continue on your medication plan without missing any doses. Please schedule follow-up with the dentist as soon as possible for definitive dental care.
== END 2023-09-05 06:15 | disposition home or self-care (01) ==
LOC: ED 04:17
DX: K04.7 Periapical abscess without sinus (principal)
CPT/HCPCS: 96372; 99283; A9270; Q0162

== ENCOUNTER 2023-11-24 06:43 | Emergency (ER) | payer OTHER, BC ==
--- NOTE | 2023-11-24 07:37 | ED Physician Documentation ---
PD HPI MALE - Stated complaint Stated Complaint: MALE - Chief complaint Chief Complaint: General - History obtained from History obtained from: Patient - History of Present Illness Timing - onset: How many days ago (several) Timing - duration: Days (several) Timing - details: Abrupt onset (he was lifting at work and felt onset of right inguinal to scrotal pain. Has increased pain inguinal with lump feeling that he believes is new. Has a small feeling of lump in right scrotum as well. Some cramping pain lower abd last night with diarrhea as well.) Associated symptoms: Scrotal swelling (right side), Abdominal pain. No: Dysuria Similar symptoms before: Has not had sx before Recently seen: Not recently seen Review of Systems Constitutional: denies: Fever, Chills : denies: Dysuria Skin: denies: Rash, Lesions PD PAST MEDICAL HISTORY - Past Medical History Past Medical History: Yes Cardiovascular: Hypertension Respiratory: None Neuro: None GI: GERD - Past Surgical History Past Surgical History: Yes General: Hiatal hernia repair Cardiovascular: Cardiac catheterization - Present Medications Home Medications: Ambulatory Orders Medication Instructions Recorded Confirmed Amoxicillin 500 mg PO TID 7 Days #21 cap 09/05/23 HYDROcod/ACETAM 5/325 [[place] 5/325] 1 - 2 tablet PO Q6H PRN #14 tablet 09/05/23 Ondansetron Odt [Zofran] 4 mg TL Q6H PRN #10 tablet 09/05/23 Docusate Sodium 100Mg Capsule 100 mg PO DAILY #20 cap 11/24/23 [Colace 100Mg Capsule] HYDROcod/ACETAM 5/325 [[place] 5/325] 1 ea PO Q6H PRN #14 tablet 11/24/23 Meloxicam [Mobic] 7.5 mg PO BID 10 Days #20 tablet 11/24/23 - Allergies Allergies/Adverse Reactions: Allergies Allergy/AdvReac Type Severity Reaction Status Date / Time bee venom protein (honey bee) Allergy Anaphylaxis Verified 11/24/23 07:03 - Social History Does the pt smoke?: No Smoking Status: Never smoker Does the pt drink ETOH?: No Does the pt have substance abuse?: No - Immunizations Immunizations are current?: Yes Immunizations: TDAP current <10years - POLST Patient has POLST: No PD ED PE NORMAL - Vitals Vital signs reviewed: Yes - General General: Alert and oriented X 3, Well developed/nourished - Cardiac Cardiac: RRR, No murmur - Respiratory Respiratory: No respiratory distress, Clear bilaterally - Abdomen Abdomen: Soft, Non distended, No organomegaly, Other (tender right inguinal area with small hernia lump but not hard nor red. Abd some tender lower abdd more to left. ) - Male Male : Deferred - Rectal Rectal: Deferred - Back Back: No CVA TTP - Derm Derm: Normal color Results - Vitals Vitals: Oxygen O2 Source Room air - Labs Labs: Laboratory Tests 11/24/23 11/24/23 11/24/23 08:00 08:13 08:13 WBC 5.6 RBC 6.61 H Hgb 16.7 Hct 53.9 H MCV 81.5 MCH 25.3 L MCHC 31.0 L RDW 16.6 H Plt Count 134 MPV 9.8 Neut # (Auto) 4.5 Lymph # (Auto) 0.6 L Delta # (Auto) 0.4 Eos # (Auto) 0.1 Baso # (Auto) 0.0 Absolute Nucleated RBC 0.00 Nucleated RBC % 0.0 Sodium 134 L Potassium 4.2 Chloride 98 L Carbon Dioxide 28 Anion Gap 8.0 BUN 16 Creatinine 0.7 Estimated GFR (MDRD) 121 Glucose 155 H Calcium 9.2 Magnesium 1.4 L Total Bilirubin 1.2 H AST 21 ALT 31 Alkaline Phosphatase 60 Total Protein 7.1 Albumin 4.2 Globulin 2.9 Albumin/Globulin Ratio 1.4 Lipase < 10 L Urine Color YELLOW Urine Clarity CLEAR Urine pH 6.0 Ur Specific [place] 1.025 Urine Protein >=300 H Urine Glucose (UA) NEGATIVE Urine Ketones NEGATIVE Urine Occult Blood TRACE-INTA Urine Nitrite NEGATIVE Urine Bilirubin NEGATIVE Urine Urobilinogen 0.2 (NORMAL) Ur Leukocyte Esterase NEGATIVE Urine RBC 0-5 Urine WBC 0-3 Ur Squamous Epith Cells NONE SEEN Urine Bacteria Rare Ur Microscopic Review INDICATED Urine Culture Comments NOT INDICATED - Rads (name of study) abd/pelvic CT Relevant Findings:: Prelim report reviewed (fat containing inguinal hernias right greater and left. No signs of obstruction. normal appendix. Diverticula without -itis. stable splenomegaly. ), EMP independent interpretation of test scrotal US Relevant Findings:: Prelim report reviewed (right hydrocele. some scrotal wall thickening. ) PD Medical Decision Making - ED course Complexity details: reviewed results (he does have hernia inginal both sides but right greater. Fat containing and no signs of obstruction/incarceration and exam not c/w incarceration. Presume new or increased with new onset of pain there. ), considered differential (pain and tendeerness c/w acute hernia/strain inguinal muscles. Has some swelling right scrotal and can get US as CT did not see abnormality per se. I believe the diarrhea is incidental viral. But the hernia pain and tender is acute and related to lifting at work. ), d/w patient Social Determinants of Health: he does light and some heavy lifting at work. He feels he can do the light part, so given note for light/ilimited lifting work. Drug Therapy Requiring Monitoring for Toxicity: he was having considerable pain at groin but the hernia was soft and no redness of skin and no inflammation seen on CT. Does not seem incarcrated, but just muscular painful. Departure - Departure Disposition: 01 Home, Self Care Clinical Impression: Right inguinal pain, Inguinal hernia, Hydrocele in adult, Acute diarrhea Condition: Stable Record reviewed to determine appropriate education?: Yes Instructions: ED Hernia Inguinal Follow-Up: Freddie Brewer MD [Provider Admit Priv/Credential] - Surgical Care [Provider Group] Prescriptions: Docusate Sodium 100Mg Capsule [Colace 100Mg Capsule] 100 mg PO DAILY #20 cap Meloxicam [Mobic] 7.5 mg PO BID 10 Days #20 tablet HYDROcod/ACETAM 5/325 [[place] 5/325] 1 ea PO Q6H PRN #14 tablet PRN Reason: Pain Comments: Your CT scan does show an inguinal hernia small on both sides but more on the right. It does not appear to be affecting the intestinal flow or function with no signs of obstruction on your CT scan. Ultrasound of the scrotum showed a small fluid cyst called a hydrocele but no hernia into the scrotum itself. I would avoid heavy lifting and such at work for the next week. Use anti- inflammatory such as meloxicam twice daily with food. To that add Tylenol 500 to 650 mg every 4-6 hours if needed for pain. To that add hydrocodone/acetaminophen if needed for worse pain. I sent prescriptions to [facility], [place]. Follow-up with one of the surgical offices, call for an appointment. This would be to discuss the indications or pros and cons of hernia repair if this keeps hurting you. I am prescribing a short course of narcotic pain medication for you. These are potentially dangerous and addictive medications that should be used carefully. These medications may constipate you. Take an [id number] stool softener such as docusate twice daily with plenty of water while taking these medications. If you go 24 hours without a bowel movement, take [id number] MiraLAX, per package instructions. Do not drink or drive while taking these medications. If you received narcotic or sedating medications while in the emergency department do not drive for 24 hours. Store this medication in a safe, secure place and out of reach of children. It is a violation of federal law to give or sell this medication to another person or to use in a manner other than prescribed. The ED will not refill narcotic prescriptions, including prescriptions lost or stolen. You can dispose of unwanted medications at the [facility]'s office or at several pharmacies such as [facility]. Forms: PCP List, Activity restrictions Discharge Date/Time: 11/24/23 13:14
[2023-11-24] MEDS ORDERED: KETOROLAC 15 MG/ML VIAL IVP STA (08:04)
[2023-11-24] MEDS ORDERED: HYDROmorphone 1 MG/ML CARPUJECT IVP STA ×3 (08:04→12:53)
[2023-11-24 08:15] LABS: BILIRUBIN,URINE NEGATIVE (NEGATIVE); GLUCOSE, URINE (UA) NEGATIVE (NEGATIVE); KETONES,URINE (UA) NEGATIVE (NEGATIVE); LEUKOCYTE ESTERASE, URINE NEGATIVE (NEGATIVE); NITRITE,URINE NEGATIVE (NEGATIVE); OCCULT BLOOD,URINE TRACE-INTA (NEGATIVE); PROTEIN,URINE >=300 mg/dL (NEGATIVE); UROBILINOGEN,URINE 0.2 (NORMAL) E.U./dL (NORMAL)
[2023-11-24 08:17] LABS: BASOPHILS % (AUTO) 0.5 %; EOSINOPHILS # (AUTO) 0.1 10^3/uL (0.0-0.7); EOSINOPHILS % (AUTO) 1.6 %; HCT - HEMATOCRIT 53.9 % (42.0-52.0); HGB - HEMOGLOBIN 16.7 g/dL (14.0-18.0); LYMPHOCYTES # (AUTO) 0.6 10^3/uL (1.5-3.5); LYMPHOCYTES % (AUTO) 10.1 %; MEAN CORPUSCULAR HEMOGLOBIN 25.3 pg (27.0-31.0); MEAN CORPUSCULAR VOLUME 81.5 fL (80.0-94.0); MEAN PLATELET VOLUME 9.8 fL (7.4-11.4); MONOCYTES # (AUTO) 0.4 10^3/uL (0.0-1.0); MONOCYTES % (AUTO) 7.8 %; NEUTROPHILS # (AUTO) 4.5 10^3/uL (1.5-6.6); NEUTROPHILS % (AUTO) 79.6 %; PLT - PLATELET COUNT 134 10^3/uL (130-450); RED BLOOD COUNT 6.61 10^6/uL (4.70-6.10); RED CELL DISTRIBUTION WIDTH 16.6 % (12.0-15.0); WHITE BLOOD COUNT 5.6 x10^3/uL (4.8-10.8)
[2023-11-24 08:17] LABS: CLARITY,URINE CLEAR (CLEAR)
[2023-11-24 08:30] LABS: BACTERIA,URINE Rare /HPF (None Seen); RBC,URINE 0-5 /HPF (0-5); SQUAMOUS EPITHELIAL CELL,UR NONE SEEN (<= Few); WBC,URINE 0-3 /HPF (0-3)
[2023-11-24 08:32] LABS: ALBUMIN 4.2 g/dL (3.2-5.5); ALBUMIN/GLOBULIN RATIO 1.4 (1.0-2.2); ALKALINE PHOSPHATASE 60 IU/L (42-121); ALT ALANINE AMINOTRANSFERASE 31 IU/L (10-60); AST ASPARTATE AMINOTRANSFERASE 21 IU/L (10-42); BILIRUBIN,TOTAL 1.2 mg/dL (0.2-1.0); BUN - BLOOD UREA NITROGEN 16 mg/dL (6-20); CALCIUM 9.2 mg/dL (8.5-10.3); CARBON DIOXIDE - CO2 28 mmol/L (21-32); CHLORIDE 98 mmol/L (101-111); CREATININE 0.7 mg/dL (0.6-1.3); GFR - MDRD 121 (>89); GLUCOSE 155 mg/dL (74-104); MAGNESIUM 1.4 mg/dL (1.7-2.3); POTASSIUM 4.2 mmol/L (3.5-4.5); SODIUM 134 mmol/L (135-145); TOTAL PROTEIN 7.1 g/dL (6.4-8.9)
[2023-11-24 08:33] LABS: LIPASE < 10 U/L (11-82)
[2023-11-24] MEDS ORDERED: iohexoL-300 100 ML VIAL IVP ONE (09:24)
--- NOTE | 2023-11-24 09:28 | CT Report ---
PROCEDURE: ABDOMEN/PELVIS W INDICATIONS: upper abd pain and diarrhea; also R groin pain CONTRAST: 100ml omni 300 TECHNIQUE: After the administration of intravenous contrast, 5 mm thick sections acquired from the diaphragms to the symphysis. 5 mm thick coronal and sagittal reformats were acquired. For radiation dose reducti on, the following was used: automated exposure control, adjustment of mA and/or kV according to clarissa ent size. COMPARISON: None. FINDINGS: Image quality: Excellent. Lung bases and heart: Unremarkable. Liver: Hepatic steatosis. Gallbladder and biliary tree: No radiopaque stones or wall thickening. No biliary dilation. Spleen: Enlarged, similar to prior. Punctate splenic calcifications noted. Pancreas: No pancreatic ductal dilation. Adrenals: No adrenal nodule. Kidneys and ureters: No hydronephrosis. No renal cystic lesion which requires follow up. No solid mas s. Bowel and peritoneum: Moderate hiatal hernia similar to prior. No bowel distension. No pathologic isha e fluid. Few diverticula without evidence of acute diverticulitis. Normal appendix. Lymph nodes: No central or retroperitoneal adenopathy. Vessels: No infrarenal aortic aneurysm. PELVIS Reproductive organs: Unremarkable. Bladder: No abnormal wall thickening, accounting for underdistension. Pelvic lymph nodes: No pelvic adenopathy by size criteria. Bones: No aggressive osseous abnormality. Left-sided rib fractures. Other: Small bilateral hernias containing fat, right greater than left. No umbilical hernia. IMPRESSION: 1.No acute findings to explain patient's symptoms. 2.Small bilateral fat-containing inguinal hernias, right greater than left. 3.Moderate hiatal hernia is stable. 4.There are a few colonic diverticula without evidence of acute diverticulitis. Normal appendix. 5.Stable splenomegaly. 6.Mild hepatic steatosis. Reviewed by: Saurabh De Jesus MD on 11/24/2023 9:26 AM PST Approved by: Saurabh De Jesus MD on 11/24/2023 9:26 AM PST Station ID: [id number]
[2023-11-24] MEDS ORDERED: DIPHENOX/ATROPINE 2.5/0.025 MG TABLET PO STA (10:01)
--- NOTE | 2023-11-24 11:29 | Ultrasound Report ---
PROCEDURE: Testicle w/Doppler INDICATIONS: right scrotal pain/swelling TECHNIQUE: Real-time scanning was performed of the scrotum and testicles, with image documentation. Color and p ulse Doppler interrogation was performed of both testicles. COMPARISON: None. FINDINGS: Right: Testicle is normal in size at 3.8 x 2.6 x 3.1 cm, and homogenous in echotexture. Epididymis is normal in overall size and morphology. Small hydrocele. No varicoceles. Overlying scrotal skin i s mildly thickened. Left: Testicle is normal in size at 4.1 x 2.2 x 2.9 cm, and homogeneous in echotexture. Epididymis is normal in overall size and morphology. Small hydrocele. Varicoceles are present. Overlying scrot al skin is mildly thickened. Doppler: Color and pulse Doppler demonstrate normal and symmetric arterial flow in both testicles. IMPRESSION: 1.Testes and epididymides are normal in appearance. 2.Small right greater than left hydroceles and mild scrotal wall thickening. 3.Left varicoceles are noted. Reviewed by: Saurabh De Jesus MD on 11/24/2023 11:27 AM PST Approved by: Saurabh De Jesus MD on 11/24/2023 11:27 AM PST Station ID: [id number]
[2023-11-24] MEDS ORDERED: oxyCODONE 5 MG TABLET PO STA (12:53)
[2023-11-24 13:22] VITALS: BP 110/94; O2SAT 93
== END 2023-11-24 13:14 | disposition home or self-care (01) ==
LOC: ED 06:43
DX: K40.20 Bilateral inguinal hernia, without obstruction or gangrene, not specified as recurrent (principal); N43.3 Hydrocele, unspecified; R19.7 Diarrhea, unspecified; I10 Essential (primary) hypertension
CPT/HCPCS: 1040M; 36415; 74177; 76870; 80053; 81001; 83690; 83735; 85025; 93975; 96374; 96375; 96376; 99284; A9270; J1170; Q9967; 81003; 87086